=== PATIENT | female | born 2005 | race Caucasian/White ===

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

== ENCOUNTER 2024-03-06 09:21 | Outpatient (CLI) | payer OTHER, SELFPAY ==
[2024-03-06 10:19] LABS: Basophils Absolute Auto 0.05 K/mm3 (0.00-0.10); Eosinophils Absolute Auto 0.05 K/mm3 (0.02-0.50); Hematocrit 39.3 % (35.0-49.0); Hemoglobin 12.5 g/dL (12.0-15.0); Immature Granulocyte Absolute 0.02 K/mm3 (0.00-0.00); Immature Granulocyte Percent A 0.4 % (0.0-0.0); Lymphocytes Absolute Auto 2.76 K/mm3 (1.10-4.50); Lymphocytes Percent Auto 55.1 % (18.0-42.0); Mean Corpuscular HGB Conc 31.8 g/dL (32-36); Mean Corpuscular Hemoglobin 25.3 pg (27.0-31.0); Mean Corpuscular Volume 79.6 fL (78.0-102.0); Monocytes Absolute Auto 0.35 K/mm3 (0.10-0.90); Neutrophils Absolute Auto 1.78 K/mm3 (1.70-7.20); Neutrophils Percent Auto 35.5 % (50.0-70.0); Platelet Count Result 362 K/mm3 (150-420); Red Blood Count 4.94 M/mm3 (4.20-5.40); Red Cell Distribution Width 13.9 % (11.6-14.4)
[2024-03-06 10:52] LABS: Alanine Aminotransferase 80 U/L (14-59); Alkaline Phosphatase 40 U/L (46-116); Anion Gap 13 mmol/L (4-12); Aspartate Amino Transferase 33 U/L (15-37); Bilirubin,Total 0.3 mg/dL (0.00-1.00); Blood Urea Nitrogen 11 mg/dL (7-18); Calcium 9.2 mg/dL (8.5-10.1); Carbon Dioxide 26 mmol/L (21-32); Chloride 103 mmol/L (98-108); Estimated Glomerular Filt Rate > 60; Ferritin 12 ng/mL (8-252); Free T4 Free Thyroxine 1.32 ng/dL (0.76-1.46); Glucose 101 mg/dL (70-99); Iron 44 ug/dL (50-170); Osmolality Calculated 293 mOsm/kg (285-295); Percent Iron Saturation 10 % (12-57); Potassium 3.6 mmol/L (3.5-5.1); Sodium 142 mmol/L (136-145); Thyroid Stimulating Hormone 3.78 uIU/mL (0.36-3.74); Total Protein 7.5 g/dL (6.4-8.2)
== END 2024-03-06 09:22 | disposition home or self-care (01) ==
PROVIDERS: PCP Internal Medicine; Visit Provider Nurse Practitioner Family
DX: R06.02 Shortness of breath (principal)
CPT/HCPCS: 36415; 80053; 82728; 83540; 83550; 84439; 84443; 85025; 94060; 94726; 94729

== ENCOUNTER 2024-04-07 14:24 | Outpatient (CLI) | payer OTHER, SELFPAY ==
[2024-04-07 15:58] LABS: Alanine Aminotransferase 57 U/L (14-59); Albumin Level 4.1 g/dL (3.4-5.0); Alkaline Phosphatase 46 U/L (46-116); Anion Gap 6 mmol/L (4-12); Aspartate Amino Transferase 25 U/L (15-37); Bilirubin,Total 0.4 mg/dL (0.00-1.00); Blood Urea Nitrogen 12 mg/dL (7-18); Calcium 9.6 mg/dL (8.5-10.1); Carbon Dioxide 30 mmol/L (21-32); Chloride 103 mmol/L (98-108); Estimated Glomerular Filt Rate > 60; Glucose 105 mg/dL (70-99); Osmolality Calculated 287 mOsm/kg (285-295); Sodium 139 mmol/L (136-145); Thyroid Stimulating Hormone 2.26 uIU/mL (0.36-3.74); Total Protein 7.4 g/dL (6.4-8.2); Vitamin B12 977 pg/mL (193-986)
[2024-04-09 05:13] LABS: T4 Thyroxine 11.2 mcg/dL (5.3-11.7)
[2024-04-09 05:33] LABS: Total Triiodothyronine (T3) 121 ng/dL (86-192)
--- NOTE | 2024-04-13 09:04 | WPDHOLTEREM ---
Holter/Event Monitor Holter/Event Monitor Date of procedure: 05/07/24 Holter/Event Procedure: 48 Hr Holter Monitor Indications: Palpitations Conclusion: 1. 48 hour holter monitor on 04/07/24. 2. Underlying rhythm is sinus rhythm. HR range 49-152 bpm; average 75 bpm. HR at 49 bpm was at 07:29. HR at 152 bpm was at 11:57. 3. There are 44 premature supraventricular complexes and 3 supraventricular couplets. No supraventricular tachycardia. 4. No premature ventricular complexes. No ventricular tachycardia. 5. No sinoatrial or atrioventricular blocks. No significant pauses greater than 2 seconds. 6. Patient reports symptoms of out of breath, deep breath hurts, felt sick, anxious which demonstrate sinus rhythm, HR range 58-84 bpm.
== END 2024-04-07 14:25 | disposition home or self-care (01) ==
PROVIDERS: PCP Internal Medicine; Visit Provider Nurse Practitioner
DX: R00.2 Palpitations (principal)
CPT/HCPCS: 36415; 80053; 82607; 84436; 84443; 84480; 93225; 93226

== ENCOUNTER 2024-05-28 16:00 | Outpatient (CLI) | payer OTHER, SELFPAY ==
--- NOTE | 2024-05-28 16:06 | ECHO_ITS ---
Patient Info Name: Genny Chatterjee Age: 19 years : 2005 Gender: Female Ht: 62 in Wt: 110 lbs BSA: 1.48 m2 BP: 110 / 71 mmHg Technical Quality: Fair Exam Date: 05/28/2024 4:56 PM Exam Location: Echo Lab Patient Status: Outpatient Admit Date: 05/28/2024 Staff Ordering Physician: Jose Rafael, Ute Monson NP [employer] Operator: Kinza Leyva RDCS Attending Provider: Jerson, Ute Monson NP Referring Physician: Jose Rafael DAVIS; Exam Type: CA echo doppler color flow Study Info Complete two-dimensional, color flow and Doppler transthoracic echocardiogram is performed. Summary 1. Complete two-dimensional, color flow and Doppler transthoracic echocardiogram is performed. 2. Left ventricular chamber dimension is normal. 3. Left ventricular systolic function is normal, estimated at 60-65%. 4. The left ventricular diastolic function is normal. 5. E/e' 7 is not elevated. Left Ventricle E/e' 7 is not elevated. Left ventricular chamber dimension is normal. Left ventricular systolic function is normal, estimated at 60-65%. The left ventricular diastolic function is normal. Right Ventricle Right ventricular systolic function is normal and with normal TAPSE 2.0 cm. Right ventricular chamber dimension is normal. Left Atria Left atrial chamber dimension is normal. Right Atria Right atrial chamber dimension is normal. Aortic Valve The aortic valve is trileaflet. There is no aortic valve stenosis. There is no aortic valve regurgitation. Pulmonic Valve There is no pulmonic regurgitation. Mitral Valve There is no mitral valve stenosis. There is no mitral valve regurgitation. Tricuspid Valve There is no tricuspid valve regurgitation. Pericardium/Pleural There is no pericardial effusion. Inferior Vena Cava Normal inferior vena cava with >50% collapse upon inspiration consistent with normal right atrial pressure, 5 mmHg. Aorta The aortic root size at the sinus of Valsalva is normal. Left Ventricular Outflow Tract Name Value Normal LVOT 2D LVOT Diameter 1.8 cm LVOT Doppler LVOT Peak Velocity 95 cm/s LVOT Peak Gradient 3 mmHg LVOT Mean Gradient 1 mmHg LVOT VTI 19 cm LVOT VTI/AV VTI Ratio 0.8 LVOT Stroke Volume 45 ml Pulmonic Valve Name Value Normal PV Doppler PV Peak Velocity 89 cm/s PV Peak Gradient 3 mmHg Mitral Valve Name Value Normal MV Doppler MV Peak Gradient 4 mmHg MV Mean Gradient 2 mmHg MV Decel [place] 551 cm/s2 MV PHT 56 ms MV Area (PHT) 3.9 cm2 4.0-5.0 MV Area (Cont Eq VTI) 1.8 cm2 MV Diastolic Function MV E Peak Velocity 106 cm/s MV A Peak Velocity 68 cm/s MV E/A 1.6 MV Decel Time 193 ms Tricuspid Valve Name Value Normal Estimated PAP/RSVP RA Pressure 5 mmHg <=5 Aortic Valve Name Value Normal AV Doppler AV Peak Velocity 114 cm/s AV Peak Gradient 5 mmHg AV Mean Gradient 3 mmHg AV VTI 24 cm AV Area (Cont Eq VTI) 1.9 cm2 >=3.0 AV Area (Cont Eq Jorge) 2.0 cm2 AV V1/V2 Ratio 0.84 AV Regurgitation 2D LVOT Area 2.4 cm2 Ventricles Name Value Normal LV Dimensions 2D/MM IVS Diastolic Thickness (2D) 0.5 cm 0.6-1.0 LVID Diastole (2D) 4.0 cm 3.8-5.2 LVIW Diastolic Thickness (2D) 0.5 cm 0.6-0.9 LVID Systole (2D) 3.1 cm 2.2-3.5 LVOT Diameter 1.8 cm LV Mass (2D Cubed) 51.24 g 67.00-162.00 LV Mass Index (2D Cubed) 35 g/m2 43-95 Relative Wall Thickness (2D) 0.27 LV Fractional Shortening/Ejection Fraction 2D/MM LV Fractional Shortening (2D) 22 % 27-45 LV EF (2D [place]) 45 % 54-74 Atria Name Value Normal LA Dimensions LA Volume (4C A-L) 19 ml RA Dimensions RA Area (4C) 7.4 cm2 <=18.0 Report Signatures
== END 2024-05-28 16:01 | disposition home or self-care (01) ==
PROVIDERS: PCP Internal Medicine; Visit Provider Nurse Practitioner
DX: I49.1 Atrial premature depolarization (principal)
CPT/HCPCS: 93306